=== PATIENT | male | born 1995 | race Caucasian/White ===

== ENCOUNTER 2020-12-15 09:48 | Outpatient (REF) | payer BC, SELFPAY ==
[2020-12-15 11:08] LABS: MANUAL DIFF FLAG NO
[2020-12-15 11:12] LABS: Basophils Percent Auto 0.7 % (0-2); Eosinophils Absolute Auto 0.2 X10*3/uL (0.0-0.4); Eosinophils Percent Auto 3.1 % (0-4); Hematocrit 47.1 % (42-52); Hemoglobin 16.5 g/dl (14.0-18.0); Imm Gran Abs Auto 0.02 X10*3/uL (0.00-0.03); Imm Gran Pct Auto 0.3 % (0.0-0.4); Lymphocytes Absolute Auto 2.2 X10*3/uL (1.2-4.9); Lymphocytes Percent Auto 35.7 % (20-40); Mean Corpuscular Hemoglobin 30.4 pg (27.0-33.0); Mean Corpuscular Volume 86.7 fL (80-98); Mean Platelet Volume 10.5 fL (9.4-12.4); Monocytes Absolute Auto 0.6 X10*3/uL (0.1-1.2); Monocytes Percent Auto 10.1 % (2-11); Neutrophils Percent Auto 50.1 % (45-73); Platelet Count 219 X10*3/uL (160-400); Red Blood Count 5.43 X10*6/uL (4.60-5.80); Red Cell Distribution Width 11.9 % (11.0-16.0); White Blood Count 6.1 X10*3/uL (4.8-10.8)
[2020-12-15 11:34] LABS: Alanine Aminotransferase 27 U/L (0-40); Albumin Level 4.9 g/dL (3.5-5.0); Alkaline Phosphatase 72 U/L (39-117); Anion Gap 9 (12-20); Aspartate Amino Transferase 20 U/L (5-37); Bilirubin Total 0.5 mg/dL (0.0-1.0); Blood Urea Nitrogen 13 mg/dL (9-16); Calcium 10.1 mg/dL (8.4-10.2); Carbon Dioxide 31 mmol/L (22-29); Chloride 103 mmol/L (96-108); Cholesterol 158 mg/dL; Estimated Glomerular Filt Rate > 60; Glucose Fasting 89 mg/dL (60-99); HDL Cholesterol 47 mg/dL; LDL Cholesterol Calculated 99 mg/dl; Potassium 4.4 mmol/L (3.3-5.1); Sodium 139 mmol/L (135-145); Total Protein 7.6 g/dL (6.5-8.0); Triglycerides 64 mg/dL
[2020-12-15 11:59] LABS: Thyroid Stimulating Hormone 1.17 uIU/mL (0.32-4.0)
[2020-12-18 17:16] LABS: Immunoglobulin A 207 mg/dL (47-310)
[2020-12-22 11:36] LABS: Endomysial IgA Antibody Negative (Negative)
[2020-12-24 13:01] LABS: Gliadin Deamidated IgG Ab <1.0 U/mL; Transglutaminase Ab IgG <1.0 U/mL; Transglutaminase IgA <1.0 U/mL
== END 2020-12-15 09:49 | disposition home or self-care (01) ==
LOC: HO.MANLDS 09:48
PROVIDERS: PCP Internal Medicine; Visit Provider Internal Medicine
DX: Z00.00 Encounter for general adult medical examination without abnormal findings (principal); R10.9 Unspecified abdominal pain
CPT/HCPCS: 36415; 80053; 80061; 82784; 83516; 84443; 85025; 86255; 86256

== ENCOUNTER 2023-06-07 11:05 | Outpatient (REF) | payer BC, SELFPAY ==
[2023-06-07 13:43] LABS: MANUAL DIFF FLAG NO
[2023-06-07 13:56] LABS: Basophils Percent Auto 0.9 % (0-2); Eosinophils Absolute Auto 0.1 X10*3/uL (0.0-0.4); Eosinophils Percent Auto 1.9 % (0-4); Hematocrit 47.4 % (42.0-52.0); Hemoglobin 16.4 g/dl (14.0-18.0); Imm Gran Abs Auto 0.01 X10*3/uL (0.00-0.03); Imm Gran Pct Auto 0.2 % (0.0-0.4); Lymphocytes Absolute Auto 1.5 X10*3/uL (1.2-4.9); Lymphocytes Percent Auto 32.5 % (20-40); Mean Corpuscular HGB Conc 34.6 g/dl (31.0-36.0); Mean Corpuscular Hemoglobin 29.8 pg (27.0-33.0); Mean Platelet Volume 10.3 fL (9.4-12.4); Monocytes Absolute Auto 0.4 X10*3/uL (0.1-1.2); Monocytes Percent Auto 8.4 % (2-11); Neutrophils Absolute Auto 2.6 x10*3/uL (2.0-8.3); Neutrophils Percent Auto 56.1 % (45-73); Platelet Count 221 X10*3/uL (160-400); Red Blood Count 5.51 X10*6/uL (4.60-5.80); Red Cell Distribution Width 11.9 % (11.0-16.0); White Blood Count 4.7 X10*3/uL (4.8-10.8)
[2023-06-07 14:13] LABS: Estimated Average Glucose 88 mg/dL; Hemoglobin A1c % 4.7 % (<6.0)
[2023-06-07 14:43] LABS: Alanine Aminotransferase 24 U/L (0-40); Albumin Level 4.7 g/dL (3.5-5.0); Alkaline Phosphatase 56 U/L (39-117); Anion Gap 13 (12-20); Aspartate Amino Transferase 21 U/L (5-37); Bilirubin Total 0.8 mg/dL (0.0-1.0); Blood Urea Nitrogen 10 mg/dL (9-16); Calcium 9.6 mg/dL (8.4-10.2); Carbon Dioxide 28 mmol/L (22-29); Chloride 104 mmol/L (96-108); Estimated Glomerular Filt Rate > 60; Glucose Random 81 mg/dL (60-115); Potassium 4.4 mmol/L (3.3-5.1); Sodium 141 mmol/L (135-145); Total Protein 7.3 g/dL (6.5-8.0)
== END 2023-06-07 11:06 | disposition home or self-care (01) ==
LOC: HO.MANLDS 11:05
PROVIDERS: Visit Provider Physician Assistant
DX: Z00.00 Encounter for general adult medical examination without abnormal findings (principal)
CPT/HCPCS: 36415; 80053; 82306; 83036; 85025

== ENCOUNTER 2024-06-26 09:12 | Outpatient (REF) | payer BC, SELFPAY ==
--- OUTSIDE RECORDS SUMMARY | 2024-06-26 09:44 | XMS_ITS | Data Portability ---
Author Organization [facility] Home Service Address [address] [facility] [place] [place] [address] Assessment Encounter Date Assessment Date Assessment LastModified by Organization Details LastModified Time 09/09/2022 09/09/2022 Patient agreed and verbally consents to this audio and video Telehealth appt via a secure platform [email or web address] Not available 09/09/2022 09:24:10 Plan of Treatment Reminders Order Date Submit Date Provider Last Modified By Organization Details Last Modified Time Details Appointments ANNUAL EXAM 2024 09:00A EPI NEAL Not available Not available Not available ANNUAL EXAM 2025 09:00A EPI NEAL Not available Not available Not available Lab CMP, serum or plasma 2024 025 [facility], [address] [place] [address], [id number], 06/26/2024 09:07:47 lipid panel, blood 2024 025 [facility], [address] [place] [address], [id number], 06/26/2024 09:07:47 CBC w/ auto diff 2024 025 [facility], [address] [place] [address], [id number], 06/26/2024 09:07:48 CMP, serum or plasma 2023 024 [facility], [address] [place] [address], [address], 06/08/2023 11:51:20 CBC w/ auto diff 2023 024 [facility], [address] [place] [address], 7[address], 06/14/2023 08:10:51 hemoglobi n A1c, QN, blood 2023 024 [facility], [address] [place] [address], [id number], 06/14/2023 08:10:51 vitamin D, 25-hydrox y, total, serum 2023 024 [facility], [address] [place] [address], [address], 06/14/2023 08:10:51 CMP, serum or plasma 2022 [email or web address] [place] [address] Laboratory, [address] [place] [address], [id number], 09/16/2022 08:51:29 lipid panel, blood 2022 [email or web address] [place] [address] Laboratory, [address] [place] [address], [id number], 09/16/2022 08:51:30 CBC w/ auto diff 2022 [email or web address] [place] [address] Laboratory, [address] [place] [address], [id number], 09/16/2022 08:51:30 hemoglobi n A1c, QN, blood 2022 [email or web address] [place] [address] Laboratory, [address] [place] [address], 17[address], 09/16/2022 08:51:31 vitamin D, 25-hydrox y, total, serum 2022 [email or web address] [place] [address] Laboratory, [address] [place] [address], [address], 09/16/2022 08:51:30 vitamin B12 + folate, serum or blood [email or web address] [place] [address] Laboratory, [address] [place] [address], [id number], 09/16/2022 08:51:30 testoster one, free + total, serum [address] Laboratory, [address] [place] [address], 470[address], 09/16/2022 08:51:30 TSH + free T4, serum [address] Laboratory, [address] [place] [address], 5[address], 09/16/2022 08:51:30 iron + TIBC + ferritin, serum 2022 [facility] [place] [address] Laboratory, [address] [place] [address], [address], 09/16/2022 08:51:31 magnesium , serum or plasma 2022 [facility] [facility] [place] [address] Laboratory, [address] [place] [address], [address], 09/16/2022 08:51:31 hemoglobi n A1c, QN, blood 2021 022 [facility], [address] [place] [address], [id number], 08/06/2021 11:35:21 CMP, serum or plasma 2021 022 [facility], [address] [place] [address], [address], 08/16/2021 09:13:38 CBC w/ auto diff 2021 [facility], [address] [place] [address], [address], 08/16/2021 09:13:39 vitamin D, 25-hydrox y, total, serum 2021 [facility], [address] [place] [address], [address], 08/16/2021 09:13:39 vitamin B12 + folate, serum or blood 2021 022 [facility], [address] [place] [address], [address], 08/16/2021 09:13:39 TSH + free T4, serum 2021 022 [facility], [address] [place] [address], [address], 08/16/2021 09:13:39 testoster one, total, serum 2021 022 [facility], [address] [place] [address], [address], 08/16/2021 09:13:39 iron + TIBC + ferritin, serum 2021 [facility], [address] [place] [address], [address], 12/02/2021 18:04:01 Referral None recorded. Procedures None recorded. Surgeries None recorded. Imaging CT, sinuses, w/o contrast 2023 [facility] (Radiology Scheduling), [address] [place] [address], [address], 02/14/2024 08:14:49 XR, sinuses, paranasal , 3 or more view [address] [facility] (Radiology Scheduling), [address] [place] [address], [address], 06/14/2023 08:09:44 Medication Orders Zithromax Z-Joel 250 mg tablet 2023 025 [facility]/Pharmacy #[id number], [address] [place], [address], 06/26/2024 08:55:53 Medrol (Joel) 4 mg tablets in a dose pack 2023 025 [facility]/Pharmacy #[id number], [address] [place], [address], 06/26/2024 08:55:59 Patient TargetsNo targets recorded. Patient InstructionsNo instructions recorded. Reason for Referral None Reported. Results Created Date Observation Date Name Description Value Unit Range Abnormal Flag Note LastModifiedBy Organization Detail LastModifiedTime 01/22/20 24 01/22/2024 XR, sinus es, paran abhi, 3 or more view No observ ation record ed. [address], [address], 01/22/2024 09:27:46 Result Notes None recorded. 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 8 08:18:22 Obesity 451205229 Active 2017 lost 80 lbs last 2-3 years - stable Evita Headley NP, [address] [place] [address], [phone], [facility] 8 14:52:49 Exercise- induced asthma 05927064 Active 2017 [facility] 8 08:18:54 Fatigue 51293941 Active 2021 EPI TOLEDO [address] [place] [address], [address], [facility] 2 11:26:41 Increased thirst 767790320 Active 2021 EPI TOLEDO [address] [place], [address], [facility] 2 11:28:15 Chronic sinusitis 23577343 Active 2023 EPI TOLEDO [address] [place], [address], [facility] 4 10:49:04 Chronic recurrent sinusitis 597650329 Active 2023 EPI TOLEDO [address] [place], [address], [facility] 4 12:10:36 Acute otitis media 4350106 Active 2023 EPI TOLEDO [address] [place] [address], [address], [facility] 4 12:13:22 Acute sinusitis 19608634 Active 2023 EPI TOLEDO [address] [place] [address], [address], [facility] 4 10:44:59 Problem Notes None recorded. Procedures Surgical History None recorded. Imaging Results Imaging Date Name Status LastModified by Organiz ation Details LastModified Time 01/22/2024 XR, sinuses, paranasal, 3 or more view completed [facility] (Imaging) [address] [place] [address], [address], 01/22/2024 09:27:46 Procedure Notes None recorded. Medical Equipment None Reported. Allergies Allergen ID Allergen Name Allergen Category Reaction Reaction Severity Criticality Documentation Date Start Date Code Code System Note Provider Name and Address Organization Details Recorded Time 2048 Product containin g penicilli n (product) medicatio n Not available Not available Not available 09/26/2017 [id number] [facility] 08:18:05 Medications Name Sig Start Date Stop Date Status Note LastModified by Organization Details LastModified Time cyclobenzap rine 10 mg tablet 05/23 completed Not Available Not Available Not Available doxycycline hyclate 100 mg capsule TAKE 1 CAPSULE BY MOUTH TWICE DAILY FOR 5 TO 7 DAYS 06/06 completed Not Available Not Available Not Available azithromyci n 250 mg tablet TAKE 2 TABLETS BY MOUTH TODAY, THEN TAKE 1 TABLET DAILY FOR 4 DAYS DIRECTED 06/26 completed Not Available Not Available Not Available Claritin 10 mg tablet TAKE 1 TABLET (10 MG) BY ORAL ROUTE ONCE DAILY, PRN seasonal allergies active OTC Not Available Not Available No t Available prednisone 20 mg tablet 05/23 completed Not Available Not Available Not Available permethrin 5 % topical cream 05/23 completed Not Available Not Available Not Available doxycycline monohydrate 100 mg tablet TAKE 1 TABLET BY MOUTH TWICE A DAY FOR 7 DAYS 08/06 completed Not Available Not Available Not Available ofloxacin 0.3 % ear drops INSTILL 10 DROPS IN BOTH EARS EVERY DAY FOR 10 DAYS 06/06 completed Not Available Not Available Not Available doxycycline monohydrate 100 mg capsule TAKE 1 CAPSULE BY MOUTH TWICE A DAY 06/06 completed Not Available Not Available Not Available lidocaine 5 % topical patch PLACE 1 PATCH ONTO THE SKIN DAILY. REMOVE & DISCARD PATCH WITHIN 12 HOURS OR DIRECTED BY MD active Not Available Not Available No t Available zafirlukast 20 mg tablet Take by oral route for 30 days. 12/15 completed Not Available Not Available Not Available mupirocin 2 % topical ointment APPLY TO TO THE AFFECTED AREA THREE TIMES DAILY FOR 14 DAYS 06/06 completed Not Available Not Available Not Available methylpredn isolone 4 mg tablets in a dose pack TAKE 6 TABLETS ON DAY 1 DIRECTED ON PACKAGE AND DECREASE BY 1 TAB EACH DAY FOR A TOTAL OF 6 DAYS 06/26 completed Not Available Not Available Not Available albuterol sulfate HFA 90 mcg/actuati on aerosol inhaler TAKE 2 PUFFS BY MOUTH EVERY 4 HOURS active PRN Not Available Not Available No t Available fluticasone propionate 50 mcg/actuati on nasal spray,suspe nsion 12/15 completed Not Available Not Available Not Available amoxicillin 875 mg-potassiu m clavulanate 125 mg tablet 09/16 completed Not Available Not Available Not Available oxycodone 5 mg tablet 09/16 completed Not Available Not Available Not Available azithromyci n 500 mg tablet 09/16 completed Not Available Not Available Not Available Truvada 200 mg-300 mg tablet TAKE 1 TABLET BY MOUTH EVERY DAY 08/06 completed Not Available Not Available Not Available Flovent HFA 220 mcg/actuati on aerosol inhaler 12/15 completed Not Available Not Available Not Available Atrovent HFA 17 mcg/actuati on aerosol inhaler 12/15 completed Not Available Not Available Not Available Zack Martinez C spacer 12/15 completed Not Available Not Available Not Available Vitals Date Recorded Body height Body mass index (BMI) Body weight Oxygen saturation Oxygen saturation in Arterial blood by Pulse oximetry Heart rate Systolic blood pressure Diastolic blood pressure Provider Name and Address Organization Details Last Updated DateTime 2 195.58 cm 27.4 kg/m2 077498. 48 g 98 % 98 % 108 /min 132 mm[Hg] 62 mm[Hg] Carmencita Gonzalez [facility] 2 11:21:24 Date Recorded Body height Body mass index (BMI) Body weight Heart rate Oxygen saturation Oxygen saturation in Arterial blood by Pulse oximetry Systolic blood pressure Diastolic blood pressure Provider Name and Address Organization Details Last Updated DateTime 4 195.58 cm 26.7 kg/m2 206010. 28 g 69 /min 99 % 99 % 114 mm[Hg] 60 mm[Hg] Jose Reyes [facility] 4 10:29:47 Date Recorded Body height Body mass index (BMI) Body weight Heart rate Oxygen saturation Oxygen saturation in Arterial blood by Pulse oximetry Systolic blood pressure Diastolic blood pressure Provider Name and Address Organization Details Last Updated DateTime 5 195.58 cm 25.6 kg/m2 39987.9 5 g 57 /min 99 % 99 % 108 mm[Hg] 68 mm[Hg] Evelyne Waite [facility] 5 08:59:06 Social History Question Answer Notes LastModified by Organizat ion Details LastModified Time Tobacco Smoking Status Never Smoker Not Available [facility]/2019 03:36:24 What Was The Date Of Your Most Recent Tobacco Screening? 06/26/2024 [email or web address] Information not available 06/26/2024 Sex: Unknown Functional Status None recorded. Mental Status None recorded. Family History Nothing Reported. Medical History No medical history recorded. Immunizations Vaccine Type Date Status Note Provider Nam e and Address Organization Details Recorded Time COVID-19, mRNA, LNP-S, PF, 30 mcg/0.3 mL dose 1 completed Carmencita simon [facility] 08/04/2021 08:49:07 COVID-19, mRNA, LNP-S, PF, 30 mcg/0.3 mL dose 1 completed Carmencita simon [facility] 08/04/2021 08:49:16 COVID-19, mRNA, LNP-S, PF, 30 mcg/0.3 mL dose 1 completed Carmencita Gonzalez [facility] 08/04/2021 08:49:24 Influenza, split virus, quadrivalent, preservative 0 completed Carmencita Gonzalez [facility] 08/04/2021 08:49:40 COVID-19, mRNA, LNP-S, PF, 30 mcg/0.3 mL dose 2 completed Carmencita Gonzalez [facility] 04/22/2022 16:34:31 influenza, unspecified formulation 2 completed Carmencita Gonzalez [facility] 04/22/2022 16:34:44 influenza, unspecified formulation 4 completed EPI TOLEDO [address] [place] [address], [address], [facility] 06/26/2024 09:02:30 Past Encounters Encounter ID Performer Location Encounter Start Date Encounter Closed Date Diagnosis/Indication Diagnosis SNOMED-CT Code Diagnosis ICD10 Code Diagnosis Note [id number] Evita Headley NP, [address],[place] [address] 09/26/2017 14:16:01 09/26/2017 16:23:01 Malaise and fatigue 271280458 R53.83 [id number] Jagdeep Dale DO [address],[place] [address] 05/23/2018 15:12:44 05/23/2018 15:40:58 Accidental poisoning by carbon monoxide 040683312 T58.91XA believe he is ok at present long discussion re ds and history and effects medical terminologist of [place] poisoning [id number] EPI TOLEDO [facility] [address] [facility] [place] [address] 05/31/2019 11:58:00 05/31/2019 14:29:30 Fever 358287754 R50.9 pt continues to have a fever today, was instructed he can take APAP and ibuprofen interchang eably chest tightness continues today, but no pain with deep breath some sob but only with activity advised him on the criteria and that he unfortunat jae does not qualify for testing nor would he be admitted to the hospital otherwise doing well, not in acute distress if he worsens he will call us back will stay on two week quarantine and write note to work pt understand s this and agrees Dyspnea on exertion 6084 5006 R06.09 as above Tight chest 81655324 R07 .89 as above [id number] [facility] [address] [facility],[place] [address] 06/19/2019 09:32:18 06/19/2019 10:44:58 Diarrhea 64769290 R19.7 Nausea and vomiting 1693 1999 R11.2 possible cholecysti s, pt had a similar episode last week but the pain didn't last unlikely to be a gastroente ritis because the patient has not eaten anything different from his normal diet 24 hours of clear fluids, can use pain reliever as well will schedule an US outpatient STAT will f/u with patient tomorrow to see how he is patient agrees and understand s this [id number] EPI TOLEDO [facility] [address] [facility] [place] [address] 09/17/2019 09:13:12 09/17/2019 10:03:09 Mild intermittent asthma 004302441 J45.20 will give inhaler and pulmonolog y referral for complete work up HIV screening 649765914 Z11.4 patient wants to be screened for HIV and start preventati ve medication will talk to after results of lab work to ensure he doesn't have it due to the fact medication options may be different would like to try Paul [id number] Jagdeep Dale DO [facility] [address] [facility] [place] [address] 12/15/2020 08:59:10 12/15/2020 11:54:52 Active or passive immunization 525349253 Z23 Adult [facility] examination 223833284 Z00.00 Abdominal pain 33879506 R10.9 [id number] EPI TOLEDO [facility] [address] [facility] [place] [address] 08/06/2021 11:15:09 08/06/2021 12:48:39 Fatigue 44359318 R53.83 will fu with labwork to determine cause of symptoms Increased thirst 0301893 03 R63.1 will also check his sugar [id number] EPI TOLEDO [facility] [address] [facility] [place] [address] 09/09/2022 08:07:39 09/09/2022 12:48:36 Fatigue 92991393 R53.83 needs recheck levels since he has hx of fatigue Adult [facility] examination 130093103 Z00.00 needs routine BWgoing off his parent's insurance will have done prior to that [id number] EPI TOLEDO [facility] [address] [facility] [place] [address] 06/07/2023 10:18:57 06/07/2023 11:09:44 Active or passive immunization 187988221 Z23 up to date [facility] examination 808399872 Z00.00 needs routine BWgoing off his parent's insurance will have done prior to that Chronic sinusitis 285101 00 J32.8 will set up with XR's [id number] EPI TOLEDO [facility] [address] [facility] [place] [address] 01/24/2024 11:53:28 01/24/2024 12:23:59 Chronic recurrent sinusitis 875701085 J32.[address] f/u Acute otitis media 32353 03 H65.03 will set up with the z-joel and medrol [id number] EPI TOLEDO [facility] [address] [facility] [place] [address] 06/26/2024 08:52:28 06/26/2024 09:12:22 Active or passive immunization 681060244 Z23 up to date General ex amination of patient 555402418 Z00.00 needs routine BWgoing off his parent's insurance will have done prior to that Health Concerns Section Related Observation LastModified by Organization Detai ls LastModified Time None Recorded Concern Status LastModified by Organization Details LastModified Time None Recorded Advance Directives Directive None Recorded Payers Encounter Date Sequence Insurance Name Policy Number Policy Drake Covered Member ID Drake Member ID Guarantor Name 08/06/2021 1 [place] [employer] [place] [id number] Cory Aguila [id number] Omidolayinka Escobar 09/09/2022 1 [place] [employer] ([facility] [place] [id number] Cory Aguila [id number] Omid Escobar 06/07/2023 1 [place] [id number] Omid Escobar [id number] Omid Escobar 01/24/2024 1 [place] [id number] Oimd Escobar [id number] Omid Escobar 06/26/2024 1 [place] [id number] Omid Escobar [id number] Omid Escobar Notes Date Note Type Note Provider Name and Address Organization Details Recorded Time 2 text/html c/o generalized fatigue the patient reports ongoing fatigue, with weaknessthe patient reports decreased libidoreports its a general malaise, constant for the past 6 mothe patient reports generalized weakness in the extremities the patient had COVID awhile ago, consistent brain fog, no worse than usual the patient reports increased thirstreports he is having night sweats mild heat intolerance no body aches will fu with full panel lab work to determine cause of symptoms and address from there EPI TOLEDO [address] [place], [address], [facility] 08/06/2021 11:36:57 3 text/html c/o needs FMLA paperwork telemed phone callpatient consents to phone patient has paperwork for FMLA for his job due to chronic sinus problemseasier for him to use this than use sick time 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 out will scan into file and also send him a copy of it will re up it as neededwill do it for the next year needs EPI TOLEDO [address] [place], [address], [facility] 09/09/2022 09:26:01 4 text/html Annual WellnessReported bypatient.Diet and Nutrition:healthy diet; discussed vitamin and supplement use; discussed portion control; discussed maintaining calcium balance; discussed diet improvement Fracture Risk:no history of fractures; no recent explained fracture; no sudden unexplained fractures; no previous musculoskeletal injuries Physical Activity:exercises on a regular basis; recent increase in physical activity; good physical condition Depression Risk:never feels sad, empty, or tearful; no loss of interest in activities; no significant changes in weight; no sleep disturbances or insomnia; no agitation; no loss of energy; no feelings of worthlessness or guilt; no thoughts of suicide; no history of depression; no history of mood disorders Hearing:no loss of hearing Vision:no vision problems EPI TOLEDO [address] [place], [address], [facility] 06/07/2023 10:58:57 4 text/html f/u imaging chronic recurrent sinusitis: has partial aeration< not complete aeration of the sinusesrecommended CT for more in depth scan of his sinuses to see if there is any notable thickening on congestion responsible for his chronic ear infectionsmay need combination tube usage or sinus surgery to prevent recurrence lives in [place] will be able to use [facility] for Consult otherwise doing well has ear infection today, bilaterally EPI TOLEDO [address] [place], [address], [facility] 01/24/2024 12:21:20 5 text/html Annual WellnessReported bypatient.Diet and Nutrition:healthy diet; discussed vitamin and supplement use; discussed portion control; discussed maintaining calcium balance; discussed diet improvement Fracture Risk:no history of fractures; no recent explained fracture; no sudden unexplained fractures; no previous musculoskeletal injuries Physical Activity:exercises on a regular basis; recent increase in physical activity; good physical condition Additional Lifestyle Factors:no tobacco use; drinks alcohol (mild-moderate) Depression Risk:never feels sad, empty, or tearful; no loss of interest in activities; no significant changes in weight; no sleep disturbances or insomnia; no agitation; no loss of energy; no feelings of worthlessness or guilt; no thoughts of suicide; no history of depression; no history of mood disorders Hearing:no loss of hearing Vision:no vision problems EPI TOLEDO [address] [place] [address], [address], [facility] 06/26/2024 09:10:50
--- OUTSIDE RECORDS SUMMARY | 2024-06-26 09:44 | XMS_ITS | Continuity of Care Document ---
Author Organization [facility], [facility] Address [address] [place] [address] Assessment No assessment recorded. Plan of Treatment Reminders Order Date Submit Date Provider Last Modified By Organization Details Last Modified Time Details Appointments ANNUAL EXAM 2024 09:00A EPI NEAL Not available Not available Not available ANNUAL EXAM 2025 09:00A EPI NEAL Not available Not available Not available Lab CMP, serum or plasma 2024 025 [facility], [address] [place] [address], [id number], 06/26/2024 09:07:47 lipid panel, blood 2024 025 [facility], [address] [place] [address], [id number], 06/26/2024 09:07:47 CBC w/ auto diff 2024 025 [facility], [address] [place] [address], [id number], 06/26/2024 09:07:48 Referral None recorded . Procedures None recorded . Surgeries None recorded . Imaging None recorded . Medication Orders None recorded . Patient TargetsNo targets recorded. Patient InstructionsNo instructions recorded. Reason for Referral None Reported. 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 [facility] 8 08:18:22 Obesity 754247312 Active 2017 lost 80 lbs last 2-3 years - stable Evita Headley NP, S [address] [place] [address], [phone], [facility] 8 14:52:49 Exercise- induced asthma 36313554 [facility] 2017 [facility] 08:18:54 Fatigue 74753936 Active 2021 EPI TOLEDO [address] [place] [address], [id number], [facility] 2 11:26:41 Increased thirst 347322429 Active 2021 EPI TOLEDO [address] [place] [address], [id number], [facility] 2 11:28:15 Chronic sinusitis 39346195 Active 2023 EPI TOLEDO [address] [place] [address], [id number], [facility] 4 10:49:04 Chronic recurrent sinusitis 094973986 Active 2023 EPI TOLEDO [address] [place] [address], [phone], [facility] 4 12:10:36 Acute otitis media 5400126 Active 2023 EPI TOLEDO [address] [place] [address], [id number], [facility] 4 12:13:22 Acute sinusitis 62927026 Active 2023 EPI TOLEDO [address] [place] [address], [phone], [facility] 4 10:44:59 Problem Notes None recorded. Medical Equipment None Reported. Allergies Allergen ID Allergen Name Allergen Category Reaction Reaction Severity Criticality Documentation Date Start Date Code Code System Note Provider Name and Address Organization Details Recorded Time 2048 Product containin g penicilli n (product) medicatio n Not available Not available Not available 09/26/2017 08682 8001 SNOMED Flor Simpsonsalvatore simon MA [facility] 8 08:18:05 Medications [...] Available Not Available Not Available amoxicillin 875 mg-anjanau rosalina clavulanate 125 mg tablet 09/16 completed Not [...] Available Not Available Not Available Zack Martinez VHC spacer 12/15 completed Not Available Not Available Not Available Vitals Date Recorded Body height Body mass index (BMI) Body weight Heart rate Oxygen saturation Oxygen saturation in Arterial blood by Pulse oximetry Systolic blood pressure Diastolic blood pressure Provider Name and Address Organization Details Last Updated DateTime 5 195.58 cm 25.6 kg/m2 21251.9 5 g 57 /min 99 % 99 % 108 mm[Hg] 68 mm[Hg] Evelyne Arias [facility] 5 08:59:06 Social History Question Answer Notes LastModified by Organizat ion Details LastModified Time Tobacco Smoking Status Never Smoker Not Available [facility] 03:36:24 What Was The Date Of Your Most Recent Tobacco Screening? 06/26/2024 [email or web address] Information not available 06/26/2024 Sex: Unknown Functional Status None recorded. Mental Status None recorded. Family History Nothing Reported. Medical History No medical history recorded. Immunizations Vaccine Type Date Status Note Provider Nam e and Address Organization Details Recorded Time COVID-19, mRNA, LNP-S, PF, 30 mcg/0.3 mL dose 1 completed [facility] 08/04/2021 08:49:07 COVID-19, mRNA, LNP-S, PF, 30 mcg/0.3 mL dose 1 completed [facility] 08/04/2021 08:49:16 COVID-19, mRNA, LNP-S, PF, 30 mcg/0.3 mL dose 1 completed Carmencita simon [facility] 08/04/2021 08:49:24 Influenza, split virus, quadrivalent, preservative 0 completed Carmencita simon [facility] 08/04/2021 08:49:40 COVID-19, mRNA, LNP-S, PF, 30 mcg/0.3 mL dose 2 completed Carmencita simon [facility] 04/22/2022 16:34:31 influenza, unspecified formulation [facility] 16:34:44 influenza, unspecified formulation 4 completed EPI TOLEDO [address] [place] [address], [phone], [facility] 06/26/2024 09:02:30 Past Encounters Encounter ID Performer Location Encounter Start Date Encounter Closed Date Diagnosis/Indication Diagnosis SNOMED-CT Code Diagnosis ICD10 Code Diagnosis Note [id number] EPI TOLEDO [facility] [address],[place] [address] 06/26/2024 08:52:28 06/26/2024 09:12:22 Active or passive immunization 529241558 Z23 up to date General ex amination of patient 262815160 Z00.00 needs routine BWgoing off his parent's insurance will have done prior to that Health Concerns Section Related Observation LastModified by Organization Detai ls LastModified Time None Recorded Concern Status LastModified by Organization Details LastModified Time None Recorded Payers Encounter Date Sequence Insurance Name Policy Number Policy Drake Covered Member ID Drake Member ID Guarantor Name 06/26/2024 1 [place] [id number] Omid Escobar [id number] Omid Escobar Notes Date Note Type Note Provider Name a nd Address Organization Details Recorded Time 5 text/html Annual WellnessReported bypatient.Diet and Nutrition:healthy [...] of hearing Vision:no vision problems EPI TOLEDO [address] [place] [address], [phone], [facility] 06/26/2024 09:10:50
[2024-06-26 13:34] LABS: MANUAL DIFF FLAG NO
[2024-06-26 13:37] LABS: Basophils Percent Auto 0.7 % (0-2); Eosinophils Absolute Auto 0.2 X10*3/uL (0.0-0.4); Eosinophils Percent Auto 3.5 % (0-4); Hematocrit 46.5 % (42.0-52.0); Hemoglobin 15.9 g/dl (14.0-18.0); Imm Gran Abs Auto 0.01 X10*3/uL (0.00-0.03); Imm Gran Pct Auto 0.2 % (0.0-0.4); Lymphocytes Absolute Auto 1.9 X10*3/uL (1.2-4.9); Lymphocytes Percent Auto 40.1 % (20-40); Mean Corpuscular HGB Conc 34.2 g/dl (31.0-36.0); Mean Corpuscular Hemoglobin 30.1 pg (27.0-33.0); Mean Corpuscular Volume 88.1 fL (80.0-98.0); Monocytes Absolute Auto 0.4 X10*3/uL (0.1-1.2); Monocytes Percent Auto 8.7 % (2-11); Neutrophils Absolute Auto 2.2 x10*3/uL (2.0-8.3); Neutrophils Percent Auto 46.8 % (45-73); Platelet Count 193 X10*3/uL (160-400); Red Blood Count 5.28 X10*6/uL (4.60-5.80); Red Cell Distribution Width 11.9 % (11.0-16.0); White Blood Count 4.6 X10*3/uL (4.8-10.8)
[2024-06-26 14:15] LABS: Alanine Aminotransferase 34 U/L (0-40); Albumin Level 4.6 g/dL (3.5-5.0); Alkaline Phosphatase 66 U/L (39-117); Anion Gap 10 (12-20); Aspartate Amino Transferase 25 U/L (5-37); Bilirubin Total 0.4 mg/dL (0.0-1.0); Blood Urea Nitrogen 18 mg/dL (9-16); Calcium 10.1 mg/dL (8.4-10.2); Carbon Dioxide 28 mmol/L (22-29); Chloride 107 mmol/L (96-108); Cholesterol 143 mg/dL (<200); Estimated Glomerular Filt Rate > 60; Glucose Random 92 mg/dL (60-115); HDL Cholesterol 49 mg/dL (>40); LDL Cholesterol Calculated 85 mg/dL (<100); Potassium 4.5 mmol/L (3.3-5.1); Sodium 140 mmol/L (135-145); Total Protein 7.1 g/dL (6.5-8.0); Triglycerides 47 mg/dL (<150)
== END 2024-06-26 09:13 | disposition home or self-care (01) ==
LOC: HO.MANLDS 09:12
PROVIDERS: Visit Provider Physician Assistant
DX: Z00.00 Encounter for general adult medical examination without abnormal findings (principal); Z13.6 Encounter for screening for cardiovascular disorders
CPT/HCPCS: 36415; 80053; 80061; 85025